=== PATIENT | female | born 1935 | race Caucasian/White ===

== ENCOUNTER 2018-08-15 14:06 | Emergency (ER) | payer MEDICARE ==
[2018-08-15 14:45] VITALS: BP 168/71
--- NOTE | 2018-08-15 15:09 | UC ---
UC General HPI - HPI Summary HPI Summary: 83-year-old woman 83-year-old woman comes in with a chief complaint of sleeping in late feeling fatigue and loss of control of urine. This all started this morning. She's here with a couple relatives who said she was saying she was feeling really terrible. They brought her here she started acting more healthy. She does have dementia. No fevers registered at home. She has had upper respiratory tract infection symptoms for several days. No complaint of any chest pain or shortness of breath or focal weakness. Had abdominal pain this am near the belly button. No c/o abd pain now. - History of Current Complaint Chief Complaint: UCGeneralIllness Stated Complaint: FATIGUE,NO APPETITE Time Seen by Provider: 08/15/18 14:49 Pain Intensity: 0 - Allergy/Home Medications Allergies/Adverse Reactions: Allergies Allergy/AdvReac Type Severity Reaction Status Date / Time aspirin Allergy Shortness Verified 08/15/18 14:46 of Breath Penicillins Allergy Shortness Verified 08/15/18 14:46 of Breath Home Medications: Home Medications PARoxetine HCL TAB* [Paxil TAB*] 10 mg PO DAILY 08/15/18 [History Confirmed ] PMH/Surg Hx/FS Hx/Imm Hx Previously Healthy: Yes - dementia - Surgical History Surgical History: Yes Surgery Procedure, Year, and Place: hernia surgery - Family History Known Family History: Positive: Cardiac Disease, Hypertension - Social History Alcohol Use: None Substance Use Type: None Smoking Status (MU): Never Smoked Tobacco Review of Systems All Other Systems Reviewed And Are Negative: Yes Constitutional: Positive: Other - see hpi Skin: Positive: Negative Eyes: Positive: Negative ENT: Positive: Nasal Discharge, Sinus Congestion Respiratory: Positive: Cough Cardiovascular: Positive: Negative Gastrointestinal: Positive: Abdominal Pain Genitourinary: Positive: Other - loss of control of urine this am Motor: Positive: Negative Neurovascular: Positive: Negative Musculoskeletal: Positive: Negative Neurological: Positive: Negative Psychological: Positive: Negative Is Patient Immunocompromised?: No Physical Exam Triage Information Reviewed: Yes Completion Of Physical Exam Limited Due To: Dementia Appearance: Well-Appearing, No Pain Distress, Well-Nourished Vital Signs: Initial Vital Signs Temp 99.0 F 08/15/18 14:37 Pulse 77 08/15/18 14:37 Resp 20 08/15/18 14:37 BP 168/71 08/15/18 14:37 Pulse Ox 98 08/15/18 14:37 Vital Signs Reviewed: Yes Eye Exam: Normal ENT: Positive: Pharynx normal Neck: Positive: Supple Respiratory: Positive: Lungs clear, Normal breath sounds, No respiratory distress Cardiovascular: Positive: RRR Abdomen Description: Positive: Nontender, Soft. Negative: CVA Tenderness (R), CVA Tenderness (L), Distended, Guarding Bowel Sounds: Positive: Present Musculoskeletal Exam: Normal Musculoskeletal: Positive: Strength Intact, ROM Intact Neurological: Positive: Other: - No focal neurologic deficit Psychological: Positive: Other: - mild dementia Skin Exam: Normal Course/Dx - Course Course Of Treatment: I discussed the urine results with the patient and her daughters. At this time because of the urinary incontinence and the altered mental status we will treat for urinary tract infection with Bactrim for 7 days. I discussed with the patient and her daughters that there can be other causes for the patient's symptoms besides urinary tract infection. Also discussed that just because there is white blood cells in the urine does not mean for sure that the patient has a urinary tract infection and that's the cause of her symptoms. Discussed if they had any concerns with a systolic the patient was not safe she needs to be the emergency department for potential admission to the hospital. At this time he preferred to treat for a presumed UTI at home. I let them know to go the emergency department if any worsening or any other concerns. - Diagnoses Provider Diagnosis: Altered mental state, Fatigue, Urinary incontinence, Pyuria, Abdominal pain Discharge - Sign-Out/Discharge Documenting (check all that apply): Patient Departure All imaging exams completed and their final reports reviewed: No Studies - Discharge Plan Condition: Stable Disposition: HOME Prescriptions: Sulfamethox/Trimethoprim DS* [Bactrim DS 800/160 TAB*] 1 tab PO BID #14 tab Patient Education Materials: Urinary Tract Infection in Women (ED), Acute Abdominal Pain (ED), Altered Mental Status (ED), Fatigue (ED) Referrals: Michelle Shi PA [Primary Care Provider] - Additional Instructions: FOLLOW UP WITH YOUR DOCTOR. GO TO THE EMERGENCY DEPARTMENT IF YOUR CONDITION WORSENS; FEVERS, WEAKNESS, YOU FEEL ILL, PAIN OR ANY QUESTIONS OR CONCERNS. - Billing Disposition and Condition Condition: STABLE Disposition: Home
== END 2018-08-15 15:50 | disposition home or self-care (01) ==
LOC: UCCORT 14:06
DX: N39.0 Urinary tract infection, site not specified (principal); R41.82 Altered mental status, unspecified; R53.83 Other fatigue; R32 Unspecified urinary incontinence; R10.9 Unspecified abdominal pain; F03.90 Unspecified dementia, unspecified severity, without behavioral disturbance, psychotic disturbance, mood disturbance, and anxiety; Z88.0 Allergy status to penicillin; Z88.8 Allergy status to other drugs, medicaments and biological substances
CPT/HCPCS: 81003; 87077; 87086; 87186; 99212; G0463